=== PATIENT | female | born 1995 | race Caucasian/White ===

== ENCOUNTER 2019-03-10 18:44 | Emergency (ER) | payer OTHER, MEDICAID ==
[~2019-03-10] VITALS: Ht 167.6 cm; Wt 124.4 kg
[~2019-03-10 18:44] MED LIST: ANTIPYRINE-BENZ10 ML OT; BACTRIM DS TAB1 EACH PO; CARISOPRODOL 3350 M1 PO; FLEXERIL PO; IBUPROFEN 800800 M1 PO; IBUPROFEN 800800 MG PO; IMITREX; MEDROLDOSEPACK PO; NAPROSYN375 MG PO; NORCO 5-325 TA1 EACH PO; NORFLEX100 MG PO; PORTIA1 EACH PO; PRENATAL; PROAIR HFA8.5 GM INH; TESSALON PERLE100 MG PO; TOPAMAX 25 MG T25 M1 PG; TRAMADOL 50 MG50 MG PO; TRINATE TABLET1 TAB; ULTRAM 50MG TAB50 MG PO; VICOPROFEN 2001 EACH PO; ZOLOFT; ZPAK PO
[2019-03-10] MEDS ORDERED: AMITRIPTYLINE H25 M2 PO (19:05)
[2019-03-10] MEDS ORDERED: ADDERALL 20 MG20 MG PO (19:06)
[2019-03-10 19:15] VITALS: BP 139/73
[2019-03-10] MEDS ORDERED: ROBITUSSIN100 MG/53 PO (19:19)
[2019-03-10] MEDS ORDERED: KEFLEX500 M1 PO (19:19)
[2019-03-10] MEDS ORDERED: TESSALON PERLE100 MG PO (19:19)
[2019-03-10] MEDS ORDERED: AMOXIL 875 MG875 M1 PO (19:32)
== END 2019-03-10 19:41 | disposition home or self-care (01) ==
LOC: M.ERS 18:44
DX: J02.9 Acute pharyngitis, unspecified (principal); F17.210 Nicotine dependence, cigarettes, uncomplicated; G43.909 Migraine, unspecified, not intractable, without status migrainosus; N80.9 Endometriosis, unspecified; Z90.721 Acquired absence of ovaries, unilateral; Z88.6 Allergy status to analgesic agent; Z88.8 Allergy status to other drugs, medicaments and biological substances